=== PATIENT | female | born 1945 | race African-American/Black ===

== ENCOUNTER 2018-09-22 07:54 | Day surgery (SDC) | payer OTHER ==
[2018-09-22] MEDS ORDERED: ACETAMINOPHEN 325 MG TABLET (FP) PO ONE (12:30)
[2018-09-22] MEDS ORDERED: ACETAMINOPHEN 325 MG TABLET (FP) ONE (12:30)
[2018-09-22 12:35] VITALS: TEMP 97.5
[2018-09-22 13:17] VITALS: BP 133/77; PULSE 61
--- NOTE | 2018-09-25 09:32 | PATH ---
Surgical Pathology Report Patient Name: DIEGO DOWLING [facility]. Rec. #: [id number] /Age/Gender: 1945 (Age: 73) / F Account: [id number] Location: [facility]-ENDOSCOPY Taken: 09/22/2018 Received: 09/22/2018 Reported: 09/25/2018 Physicians: Bucky Kaplan M.D. Specimen(s) Received A: BX 2ND PORTION DUODENUM B: BX ANTRUM C: BX SCHATZKI'S RING D: BX GASTRIC FUNDUS POLYP E: BX MID ESOPHAGUS F: BX CECAL POLYP G: BX MID TRANSVERSE COLON POLYP H: POLYP SIGMOID Clinical History Dysphagia, adenoma surveillance Postoperative diagnosis: Atrophic gastritis, hiatal hernia, Schatzki's ring, diverticulosis, colon polyp Final Diagnosis A. DUODENUM, SECOND PORTION AND DUODENAL BULB, BIOPSY: DUODENAL MUCOSA WITHOUT SIGNIFICANT PATHOLOGIC FINDINGS. B. STOMACH, ANTRUM, BIOPSY: GASTRIC ANTRAL MUCOSA WITH MILD CHRONIC GASTRITIS. IMMUNOHISTOCHEMICAL STAIN FOR H. PYLORI IS NEGATIVE. C. SCHATZI'S RING, BIOPSY: SQUAMOCOLUMNAR MUCOSA WITH MILD CHRONIC INFLAMMATION AND CHANGES OF MILD REFLUX ESOPHAGITIS. NO INTESTINAL METAPLASIA OR DYSPLASIA IDENTIFIED. D. GASTRIC FUNDUS, POLYP, BIOPSY: FUNDIC GLAND POLYP. IMMUNOHISTOCHEMICAL STAIN FOR H. PYLORI IS NEGATIVE. E. MID ESOPHAGUS, BIOPSY: SQUAMOUS MUCOSA WITH MILD BASAL CELL HYPERPLASIA AND FOCAL VASCULAR CONGESTION. F. CECUM, POLYP, BIOPSY: TUBULAR ADENOMA. G. MID TRANSVERSE COLON, POLYP, BIOPSY: HYPERPLASTIC POLYP. H. SIGMOID COLON, POLYP, BIOPSY: POLYPOID COLONIC MUCOSA WITH SUPERFICIAL HYPERPLASTIC FEATURES. Electronically Signed Jennifer Bryson M.D. Gross Description A. Received in formalin, labeled "biopsy second portion of duodenum and duodenal bulb" are 3 [place], irregular portions of soft tissue ranging from 0.3-0.4 cm. in greatest dimension. The specimens are submitted in toto in one cassette. B. Received in formalin, labeled "biopsy antrum" are 4 [place], irregular portions of soft tissue ranging from 0.3-0.4 cm. in greatest dimension. The specimens are submitted in toto in one cassette. C. Received in formalin, labeled "biopsy Schatzki's ring" are 6 [place], irregular portions of soft tissue ranging from 0.2-0.5 cm. in greatest dimension. The specimens are submitted in toto in one cassette. D. Received in formalin, labeled "biopsy gastric fundus polyp" are 2 [place], irregular portions of soft tissue measuring 0.2 and 0.3 cm. in greatest dimension. The specimens are submitted in toto in one cassette. E. Received in formalin, labeled "biopsy mid esophagus" are 2 more[place], irregular portions of soft tissue averaging 0.2 cm. in greatest dimension. The specimens are submitted in toto in one cassette. F. Received in formalin, labeled "biopsy cecal polyp" is a moreland, irregular portion of soft tissue measuring 0.4 cm. in greatest dimension. The specimen is submitted in toto in one cassette. G. Received in formalin, labeled "biopsy mid transverse colon polyp" are 3 more[place], irregular portions of soft tissue ranging from 0.1-0.4 cm. in greatest dimension. The specimens are submitted in toto in one cassette. H. Received in formalin, labeled "biopsy sigmoid colon polyp" are 2 more[place], irregular portions of soft tissue measuring 0.2 and 0.3 cm. in greatest dimension. The specimens are submitted in toto in one cassette. 09/22/2018 saudi09/22/2018
== END 2018-09-22 13:31 | disposition home or self-care (01) ==
LOC: JASU-ENDO 07:54
PROVIDERS: ATTEND Internal Medicine Gastroenterology
PROC: 0DBL8ZX Excision of Transverse Colon, Via Natural or Artificial Opening Endoscopic, Diagnostic (ICD-10-PCS; 2018-09-22)
PROC: 0DBN8ZX Excision of Sigmoid Colon, Via Natural or Artificial Opening Endoscopic, Diagnostic (ICD-10-PCS; 2018-09-22)
PROC: 0DB48ZX Excision of Esophagogastric Junction, Via Natural or Artificial Opening Endoscopic, Diagnostic (ICD-10-PCS; 2018-09-22)
PROC: 0DB68ZX Excision of Stomach, Via Natural or Artificial Opening Endoscopic, Diagnostic (ICD-10-PCS; 2018-09-22)
PROC: 0DB38ZX Excision of Lower Esophagus, Via Natural or Artificial Opening Endoscopic, Diagnostic (ICD-10-PCS; 2018-09-22)
PROC: 0D748ZZ Dilation of Esophagogastric Junction, Via Natural or Artificial Opening Endoscopic (ICD-10-PCS; 2018-09-22)
PROC: 0DBH8ZX Excision of Cecum, Via Natural or Artificial Opening Endoscopic, Diagnostic (ICD-10-PCS; principal; 2018-09-22 10:45)
DX: Z12.11 Encounter for screening for malignant neoplasm of colon (principal); Z86.010 Personal history of colon polyps; D12.0 Benign neoplasm of cecum; D12.5 Benign neoplasm of sigmoid colon; D12.3 Benign neoplasm of transverse colon; K57.30 Diverticulosis of large intestine without perforation or abscess without bleeding; K64.8 Other hemorrhoids; K22.2 Esophageal obstruction; K44.9 Diaphragmatic hernia without obstruction or gangrene; K21.9 Gastro-esophageal reflux disease without esophagitis
CPT/HCPCS: 88305-TC; 88342-TC

== ENCOUNTER 2019-01-28 07:25 | Emergency (ER) | payer OTHER ==
[2019-01-28 07:38] VITALS: BMI 26.6
--- NOTE | 2019-01-28 07:38 | PDOC ---
History of Present Illness - General Stated Complaint: PAIN Time Seen by Provider: 01/28/19 07:38 History Source: Patient Exam Limitations: No Limitations - History of Present Illness Initial Comments: 01/28/19 07:59 73 year old woman with a history of diverticulosis, migraines, torticollis of the neck (managed by botox), HTN, hypothyroidism and HLD who presents with sudden onset pressure like generalized headache that is rated 8.5/10 that woke her up from sleep and prevented her from going back to sleep. The patient denies any changes in vision or hearing, slurring of speech or facial droop. She did not take any medication for her pain. She also notes that she has had some stabbing sensation in her L shoulder for several days and has chronic nausea. She admits to chronic ongoing intermittent chest pain. She admits to some seasonal allergies. She denies any fevers, shortness of breath, cough, cold , congestion, diarrhea, onstipation or abdominal pain. She has no other complaints at bedside. Sister at bedside lives with patient, denies any changes in mentation or slurring of speech. Past History - Past Medical History Allergies/Adverse Reactions: Allergies Allergy/AdvReac Type Severity Reaction Status Date / Time No Known Drug Allergies Allergy Verified 01/28/19 07:36 NON DRUG ALLERGENS Allergy Uncoded 01/28/19 07:36 Home Medications: Ambulatory Orders Levothyroxine [Synthroid -] 50 mcg PO DAILY 02/13/14 Amlodipine Besylate/Benazepril [Lotrel 10-20 mg Capsule] 1 cap PO DAILY Onabotulinumtoxina [Botox (Nf) -] 200 unit IM ASDIR 06/26/15 propRANOLol HCL [Inderal -] 10 mg PO BID 06/26/15 Magnesium Carb/Aluminum Hydrox [Gaviscon Es Tablet Chew] 1 each PO Q4H PRN 30 Days #30 tab.chew 09/22/18 Omeprazole 40 mg PO DAILY 01/28/19 Pramipexole Dihydrochloride [Mirapex -] 0.25 mg PO HS 01/28/19 Anemia: No Asthma: No Cancer: No Cardiac Disorders: No CVA: No COPD: No CHF: No Dementia: No Diabetes: Yes (BORDERLINE) GI Disorders: Yes (HIATAL HERNIA, H/O DIVERTICULITIS, COLON POLYPS,TORTICOLLIS, SCHATZKI RING) Disorders: No HTN: Yes Hypercholesterolemia: Yes (HYPERLIPIDEMIA) Liver Disease: No Seizures: No Thyroid Disease: Yes (HYPOTHYROIDISM) - Surgical History Abdominal Surgery: No Appendectomy: No Cardiac Surgery: No Cholecystectomy: No Lung Surgery: No Neurologic Surgery: No Orthopedic Surgery: No - Immunization History Immunization Up to Date: No - Suicide/Smoking/Psychosocial Hx Smoking History: Never smoked Have you smoked in the past 12 months: No If you are a former smoker, when did you quit?: 10 YRS AGO Hx Alcohol Use: Yes (RARE) Drug/Substance Use Hx: No Substance Use Type: None Hx Substance Use Treatment: No Review of Systems - Review of Systems Able to Perform ROS?: Yes Comments:: 01/28/19 08:19 GENERAL/CONSTITUTIONAL: No fever or chills. No weakness. HEAD, EYES, EARS, NOSE AND THROAT: No change in vision. No ear pain or discharge. No sore throat. CARDIOVASCULAR: No chest pain or shortness of breath RESPIRATORY: No cough, wheezing, or hemoptysis. GASTROINTESTINAL: No nausea, vomiting, diarrhea or constipation. GENITOURINARY: No dysuria, frequency, or change in urination. MUSCULOSKELETAL: No joint or muscle swelling or pain. No neck or back pain. SKIN: No rash NEUROLOGIC: + headache, No vertigo, loss of consciousness, or change in strength /sensation. ENDOCRINE: No increased thirst. No abnormal weight change HEMATOLOGIC/LYMPHATIC: No anemia, easy bleeding, or history of blood clots. ALLERGIC/IMMUNOLOGIC: No hives or skin allergy. Is the patient limited Cuban proficient: No *Physical Exam - Vital Signs Last Vital Signs Temp Pulse Resp BP Pulse Ox 98 F 80 18 194/109 H 98 01/28/19 07:32 01/28/19 07:32 01/28/19 07:32 01/28/19 07:32 01/28/19 07:32 - Physical Exam Comments: 01/28/19 08:16 GENERAL: Awake, alert, and fully oriented, in no acute distress HEAD: No signs of trauma, normocephalic, atraumatic EYES: PERRLA, EOMI, sclera anicteric, conjunctiva clear, no sinus pressure ENT: oropharynx clear without exudates. Moist mucosa NECK: Normal ROM, supple LUNGS: No distress, speaks full sentences, clear to auscultation bilaterally HEART: Regular rate and rhythm, normal S1 and S2, no murmurs, rubs or gallops, peripheral pulses normal and equal bilaterally. ABDOMEN: Soft, nontender, normoactive bowel sounds. No guarding, no rebound. No masses EXTREMITIES : Normal inspection, Normal range of motion, no edema. No clubbing or cyanosis. NEUROLOGICAL: Cranial nerves II through XII grossly intact. Normal speech, normal gait, no focal sensorimotor deficits SKIN: Warm, Dry, normal turgor, no rashes or lesions noted ED Treatment Course - LABORATORY CBC & Chemistry Diagram: 01/28/19 08:47 01/28/19 08:47 Medical Decision Making - Medical Decision Making 01/28/19 08:10 73 year old woman with a history of diverticulosis, migraines, torticollis of the neck (managed by botox), HTN, hypothyroidism and HLD who presents with sudden onset pressure like generalized headache that is rated 8.5/10 that woke her up from sleep and prevented her from going back to sleep. The patient denies any changes in vision or hearing, slurring of speech or facial droop. She did not take any medication for her pain. She also notes that she has had some stabbing sensation in her L shoulder for several days and has chronic nausea. She admits to chronic ongoing intermittent chest pain. She admits to some seasonal allergies and took two sinus medications this AM. She denies any fevers, shortness of breath, cough, cold, congestion, diarrhea, onstipation or abdominal pain. She has no other complaints at bedside. ED Course: consider migraine vs sinus headache vs tension headache vs SAH consider headahce 2/2 to htn however patient's max bp at home was 160s/100 but her average bp is ~ 130s/90s will dose pain medication to seek improvement of bp as it may be possible that the patient's pain is driving her bp she reports that she takes her bp med at night, lost dose last night. tylenol and reglan 01/28/19 09:46 labs wnl pending Head CT report 01/28/19 10:[address] negative discisssed LP with patient to rule out SAH as symptyoms ahve largely resolved with tylenol and reglan SAH is less likely, however patient still complains of stypical pain symptosm patient notes resolution of her headache aside from L sided pain persisting patient says that this is atypical of her normal migraines. considering this, will order CTA due to sudden onset of persisent headahce that awoke patient from sleep and is atypical from regular migraines 01/28/19 12:26 repeat vitals 170 systolic poatient reassessed states she did not take her am bp meds this am, her propranolol 10bid will dose home med. pending CTA and repeat trop 01/28/19 13:05 repeat trop negative pending CTA report 01/28/19 14:51 CXR: unremarkable, no acute pathology 01/28/19 14:59 CTA negative patient stable for discharge *DC/Admit/Observation/Transfer Diagnosis at time of Disposition: Headache - Discharge Dispostion Disposition: HOME Condition at time of disposition: Stable Decision to Admit order: No - Referrals Referrals: Efra Field MD [Primary Care Provider] - - Patient Instructions Printed Discharge Instructions: DI for Headache Additional Instructions: You were seen in the ED for complaints of headache. In the ED you were evaluated with labwork and imaging. Your results were largely unremarkable. There does not appear to be an acute need for immediate hospitalization. You are advised to follow up with your Primary Care Physician within 1-2 days. Please continue taking your blood pressure medications as indicated. Return to the ED immediately if you experience worsening headache, changes in vision, ringing in the ears, chest pain, shortness of breath, lightheadedness or loss of consciousness. - Post Discharge Activity
--- NOTE | 2019-01-28 08:26 | PDOC ---
Attending Attestation - Resident Resident Name: Magdalena Felton - ED Attending Attestation I have performed the following: I have examined & evaluated the patient, The case was reviewed & discussed with the resident, I agree w/resident's findings & plan, Exceptions are as noted - HPI HPI: 01/28/19 08:23 73yo F hx HTN, hypothyroidism, HL, diverticulosis, torticollis on botox, migraines presents to the ED with generalized headache and pressure. Headache began suddenly last night, woke her up from sleep and has been constant since Headache Does not feel like her usual migraines +chronic nausea No treats tried
[2019-01-28] MEDS ORDERED: METOCLOPRAMIDE HCL INJECTION 10 MG/2 ML VIAL IVPUSH ONE (08:40)
[2019-01-28] MEDS ORDERED: ACETAMINOPHEN 1000 MG/100 ML VIAL (NON FORMULARY) IVPB ONE (08:40)
[2019-01-28] MEDS ORDERED: ACETAMINOPHEN INJECTION 100 ML IVPB ONE (08:55)
[2019-01-28] MEDS ORDERED: METOCLOPRAMIDE HCL INJECTION 10 MG/2 ML VIAL ONE (08:55)
[2019-01-28 09:03] LABS: BASO % 1.1 % (0-2.0); EOS % 2.4 % (0-4.5); HEMATOCRIT 41.1 % (32.4-45.2); HEMOGLOBIN 13.8 GM/dL (10.7-15.3); LYMPH % 25.9 % (8-40); MCH 30.4 pg (25.7-33.7); MCHC 33.5 g/dl (32.0-36.0); MEAN CELL VOLUME 90.8 fl (80-96); MONO % 7.4 % (3.8-10.2); NEUT % 63.2 % (42.8-82.8); PLATELET COUNT 284 K/MM3 (134-434); RBC 4.53 M/mm3 (3.60-5.2); RDW 14.3 % (11.6-15.6); WHITE BLOOD COUNT 4.9 K/mm3 (4.0-10.0)
[2019-01-28 09:18] LABS: INR 1.03 (0.83-1.09); PROTHROMBIN TIME (PATIENT) 12.1 SEC (9.7-13.0)
[2019-01-28 09:21] LABS: ACTIVATED PTT 31.1 SECONDS (25.2-36.5)
[2019-01-28 09:31] LABS: ALBUMIN 3.7 g/dl (3.4-5.0); ALK PHOS 110 U/L (45-117); ANION GAP 5 MMOL/L (8-16); BILIRUBIN,TOTAL 0.4 mg/dL (0.2-1); BLOOD UREA NITROGEN 15 mg/dL (7-18); CALCIUM 9.2 mg/dL (8.5-10.1); CHLORIDE 109 mmol/L (98-107); CO2 27 mmol/L (21-32); CREATININE 0.9 mg/dL (0.55-1.3); GLUCOSE,RANDOM 115 mg/dL (74-106); SGOT/AST 10 U/L (15-37); SGPT/ALT 20 U/L (13-61); SODIUM 141 mmol/L (136-145)
--- NOTE | 2019-01-28 11:40 | PDOC ---
Documentation entered by Rudolph Seo SCRIBE, acting as scribe for Peyton Malik MD. Peyton Malik MD: This documentation has been prepared by the Rayray chow Daniel, SCRIBE, under my direction and personally reviewed by me in its entirety. I confirm that the documentation accurately reflects all work, treatment, procedures, and medical decision making performed by me. Attending Attestation - Resident Resident Name: Magdalena Felton - ED Attending Attestation I have performed the following: I have examined & evaluated the patient, The case was reviewed & discussed with the resident, I agree w/resident's findings & plan, Exceptions are as noted - HPI HPI: 01/28/19 10:29 The patient is a 73 year old female with a past medical history of diverticulosis, migraines, torticollis of the neck (managed by botox), HTN, and hypothyroidism here today for evaluation of headache. The patient reports that she was asleep last night when her headache woke her up. She describes it as a pressure that is most prominent on the left side of her head. She states she did not have a headache when she went to sleep last night. She reports that her headache is now almost completely gone. She states this feels a bit different than her migraines. Denies associated stiff neck, nausea, vomiting, dizziness, focal weakness/numbness. She notes associated flutters in her chest and intermittent left arm pain which she states she has had for more than a year on and off. No known triggers. She states Dr. Acevedo has referred her to a personal carer at [facility] for these sxs. Patient denies fever, chills. Denies chest pain, shortness of breath. Denies diarrhea, abdominal pain. Denies lower extremity edema. Allergies: NKDA Social history: Patient reports quitting tobacco use 10-15 years ago PCP: Dr. Efra Field - Physicial Exam PE: 01/28/19 11:12 GENERAL: Awake, alert, and fully oriented, in no acute distress HEAD: No signs of trauma EYES: PERRLA, EOMI, sclera anicteric, conjunctiva clear ENT: Auricles normal inspection, hearing grossly normal, nares patent, oropharynx clear without exudates. Moist mucosa NECK: Normal ROM, supple, no lymphadenopathy, JVD, or masses LUNGS: Breath sounds equal, clear to auscultation bilaterally. No wheezes, and no crackles HEART: Regular rate and rhythm, normal S1 and S2, no murmurs, rubs or gallops ABDOMEN: Soft, nontender, normoactive bowel sounds. No guarding, no rebound. No masses EXTREMITIES: Normal range of motion, no edema. No cords, erythema, or tenderness NEUROLOGICAL: Normal speech, cranial nerves intact, 5/5 strength in all 4 extremities, normal sensation to light touch in all 4 extremities, normal cerebellar exam, normal gait, normal tone SKIN: Warm, Dry, normal turgor, no rashes or lesions noted. - Medical Decision Making 01/28/19 11:13 73yo F with MMP presents to the ED with a headache. Vitals with elevated BP on arrival which came down to 155/92 w/o intervention. Remaining vitals wnl Exam wnl, with non focal neuro exam, supple neck and comfortable appearing pt With regards to headache, considering it woke her up from sleep and pt states it is more severe than her usual migraines, SAH is on our differential. CTH negative for acute pathology. Discussed our concern with the patient for SAH, and recommended a lumbar puncture for further evaluation. Discussed with risks and benefits of this procedure with the patient and her sister, including being able to r/o SAH. Pt declines the LP because she states her pond has basically resolved at this point and she does not want the procedure. As an alternative, pt was offered a CTA to look for aneurysm which she agrees to. She is aware that a CTA will not definitively r/o a SAH bleed With regards to her year of chest fluttering and arm pain, she has had sxs for a year and they would be very atypical for an ACS. EKG is unchanged compared to EKG from 2015. Plan to check 2 trops, CXR, reassess. 01/28/19 15:02 Trop x2 neg Pt asymptomatic in the ED, no further headache or CP CTA with no evidence of anuerysm Pt to f/u with PMD in 1-2 days and return if and new, recurring, or concerning symptoms I discussed the physical exam findings, ancillary test results and final diagnoses with the patient. I answered all of the patient's questions. The patient was satisfied with the care received and felt comfortable with the discharge plan and treatment plan. The patient will call their primary care physician within 24 hours to arrange follow-up and will return to the Emergency Department with any new, persistent or worsening symptoms. Heart Score/ECG Review - Risk Factors Risk Factors Heart Score: Yes Smoking History Based on the list above the patient has:: 1-2 risk factors #1 01/28/19 11:02 Twelve-lead EKG was performed and reviewed by me. Normal sinus rhythm, rate 64. Normal axis. No ST elevations. T wave inversions in leads V2 to V5. EKG is unchanged compared to EKG from 12/10/2014.
[2019-01-28 12:20] VITALS: TEMP 97.7
[2019-01-28] MEDS ORDERED: SODIUM CHLORIDE 500 ML IV SCH (12:30)
[2019-01-28 13:54] VITALS: PULSE 67
[2019-01-28 14:40] VITALS: BP 157/85
--- NOTE | 2019-01-29 09:58 | EKG ---
Test Reason : Blood Pressure : / mmHG Vent. 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
== END 2019-01-28 15:20 | disposition home or self-care (01) ==
LOC: JER 07:25
PROC: 3E033NZ Introduction of Analgesics, Hypnotics, Sedatives into Peripheral Vein, Percutaneous Approach (ICD-10-PCS; principal; 2019-01-28)
PROC: 3E033GC Introduction of Other Therapeutic Substance into Peripheral Vein, Percutaneous Approach (ICD-10-PCS; 2019-01-28)
DX: R51 Headache (principal); I10 Essential (primary) hypertension; E03.9 Hypothyroidism, unspecified; E78.5 Hyperlipidemia, unspecified
CPT/HCPCS: 36415; 70450-TC; 70496-TC; 71045-TC-FY; 80053; 84484; 85025; 85610; 85730; 93005; 93010; 96374; 96375; 99283-25; J0131; J7030

== ENCOUNTER 2020-08-01 05:00 | Day surgery (SDC) | payer OTHER ==
[2020-07-31 12:15] VITALS: BMI 30.4
[2020-08-01 10:26] VITALS: TEMP 97.6
[2020-08-01 11:04] VITALS: BP 129/71; PULSE 62
== END 2020-08-01 11:20 | disposition home or self-care (01) ==
LOC: JASU-ENDO 05:00
PROVIDERS: ATTEND Internal Medicine Gastroenterology
PROC: 0DBL8ZX Excision of Transverse Colon, Via Natural or Artificial Opening Endoscopic, Diagnostic (ICD-10-PCS; 2020-08-01)
PROC: 0DBN8ZX Excision of Sigmoid Colon, Via Natural or Artificial Opening Endoscopic, Diagnostic (ICD-10-PCS; 2020-08-01)
PROC: 0DBP8ZX Excision of Rectum, Via Natural or Artificial Opening Endoscopic, Diagnostic (ICD-10-PCS; 2020-08-01)
PROC: 0DBH8ZX Excision of Cecum, Via Natural or Artificial Opening Endoscopic, Diagnostic (ICD-10-PCS; 2020-08-01)
PROC: 0DBK8ZX Excision of Ascending Colon, Via Natural or Artificial Opening Endoscopic, Diagnostic (ICD-10-PCS; principal; 2020-08-01 09:30)
DX: Z12.11 Encounter for screening for malignant neoplasm of colon (principal); K62.1 Rectal polyp; D12.2 Benign neoplasm of ascending colon; D12.0 Benign neoplasm of cecum; D12.5 Benign neoplasm of sigmoid colon; D12.3 Benign neoplasm of transverse colon; K57.30 Diverticulosis of large intestine without perforation or abscess without bleeding; K64.8 Other hemorrhoids; I10 Essential (primary) hypertension; E11.9 Type 2 diabetes mellitus without complications
CPT/HCPCS: 88305-TC

== ENCOUNTER 2023-11-23 04:17 | Day surgery (SDC) | payer OTHER ==
[2023-11-15 15:33] VITALS: BMI 29.4
[2023-11-23 08:35] VITALS: TEMP 98.6
[2023-11-23 08:54] VITALS: RESP 18
[2023-11-23 08:55] VITALS: BP 105/63; PULSE 75
== END 2023-11-23 09:40 | disposition home or self-care (01) ==
LOC: JASU-ENDO 04:17
PROVIDERS: ATTEND Internal Medicine Gastroenterology
PROC: 0DBL8ZX Excision of Transverse Colon, Via Natural or Artificial Opening Endoscopic, Diagnostic (ICD-10-PCS; 2023-11-23)
PROC: 0DBP8ZX Excision of Rectum, Via Natural or Artificial Opening Endoscopic, Diagnostic (ICD-10-PCS; principal; 2023-11-23 08:00)
DX: Z12.11 Encounter for screening for malignant neoplasm of colon (principal); Z86.010 Personal history of colon polyps; D12.8 Benign neoplasm of rectum; D12.3 Benign neoplasm of transverse colon; K57.30 Diverticulosis of large intestine without perforation or abscess without bleeding; K64.8 Other hemorrhoids
CPT/HCPCS: 82962

== ENCOUNTER 2024-12-13 07:10 | Day surgery (SDC) | payer OTHER ==
[2024-12-10 13:14] VITALS: BMI 29.2
[2024-12-13] MEDS ORDERED: LIDOCAINE HCL/PF 1% SDV 5ML VIAL ONE (07:18)
[2024-12-13] MEDS ORDERED: TRIAMCINOLONE ACET 40MG/1ML VIAL ONE (07:18)
[2024-12-13] MEDS ORDERED: BUPIVACAINE HCL/PF 0.5% (5MG/ML) 10 ML VIAL ONE (07:18)
[2024-12-13 11:44] VITALS: BP 122/74; PULSE 73; RESP 16; TEMP 98.2
[2024-12-13] MEDS ORDERED: ACETAMINOPHEN 500 MG TABLET (FP) PO PRN (12:13)
== END 2024-12-13 12:00 | disposition home or self-care (01) ==
LOC: JASU-SURG 07:10
PROVIDERS: ATTEND Pain Medicine Pain Medicine
PROC: 3E0T3BZ Introduction of Anesthetic Agent into Peripheral Nerves and Plexi, Percutaneous Approach (ICD-10-PCS; principal; 2024-12-13 11:45)
DX: M47.816 Spondylosis without myelopathy or radiculopathy, lumbar region (principal)
CPT/HCPCS: 76000-TC-FY

== ENCOUNTER 2025-04-19 06:26 | Day surgery (SDC) | payer OTHER ==
[2025-04-17 12:41] VITALS: BMI 29.2
[2025-04-19] MEDS ORDERED: LIDOCAINE HCL/PF 1% SDV 5ML VIAL ONE (07:13)
[2025-04-19 07:37] VITALS: RESP 16
[2025-04-19] MEDS ORDERED: CEFAZOLIN SODIUM 2 GM in DEXTROSE 5%-WATER 100 ML IVPB ONE (08:00)
[2025-04-19] MEDS ORDERED: ONDANSETRON 4 MG/2 ML VIAL IVPUSH PRN (08:12)
[2025-04-19] MEDS ORDERED: LACTATED RINGERS SOLUTION 1,000 ML IV SCH (08:15)
[2025-04-19] MEDS: LIDOCAINE HCL 1% PRESERVATIVE FREE - 30ML VIAL IJ ONE (08:45)
[2025-04-19] MEDS: LIDOCAINE HCL/PF 2% SDV 5ML VIAL INF ONE (08:48)
[2025-04-19 09:43] VITALS: TEMP 97.4
[2025-04-19 10:23] VITALS: BP 118/70; PULSE 70
[2025-04-19] MEDS ORDERED: ACETAMINOPHEN 500 MG TABLET (FP) PO PRN (13:46)
== END 2025-04-19 10:30 | disposition home or self-care (01) ==
LOC: JASU-SURG 06:26
PROVIDERS: ATTEND Pain Medicine Pain Medicine
PROC: 00HU3MZ Insertion of Neurostimulator Lead into Spinal Canal, Percutaneous Approach (ICD-10-PCS; principal; 2025-04-19 08:00)
DX: G89.4 Chronic pain syndrome (principal); M54.16 Radiculopathy, lumbar region; E11.40 Type 2 diabetes mellitus with diabetic neuropathy, unspecified
CPT/HCPCS: 63650; C1897; 76000-TC-FY; 82962

== ENCOUNTER 2025-06-18 14:31 | Emergency (ER) | payer OTHER ==
[2025-06-18 14:36] VITALS: BMI 29.4
[2025-06-18 16:12] LABS: ABSOLUTE IMMATURE GRANULOCYTES 0.01 x10^3/uL (0.0-0.031); BASOPHILS # 0.04 x10^3/uL (0.01-0.08); EOSINOPHIL % 1.3 % (0.7-5.8); EOSINOPHILS # 0.07 x10^3/uL (0.04-0.36); MCHC 32.1 g/dl (32.2-35.5); MEAN CELL VOLUME 92.0 fl (79.4-94.8); MEAN PLT VOLUME 11.0 fl (9.4-12.3); MONOCYTE # 0.52 x10^3/uL (0.24-0.86); MONOCYTE % 9.4 % (4.7-12.5); RDW 14.4 % (12.4-16.6)
[2025-06-18 16:47] LABS: GLUCOSE,RANDOM 115.0 mg/dL (74-106); TOT PROT 7.2 g/dl (6.4-8.2)
[2025-06-18 16:48] LABS: CO2 23.0 mmol/L (21-32)
[2025-06-18 16:49] LABS: ALK PHOS 94.0 U/L (40-150)
[2025-06-18 16:52] LABS: CREATININE 0.99 mg/dL (0.55-1.3); SGOT/AST 30.0 U/L (5-34); SGPT/ALT 24.0 U/L (0-55)
[2025-06-18 17:30] LABS: HIV INTERPRETATION NEGATIVE (NEGATIVE)
[2025-06-18 18:10] VITALS: BP 152/95; PULSE 68; RESP 18; TEMP 97.8
== END 2025-06-18 19:49 | disposition home or self-care (01) ==
LOC: JER 14:31
DX: M79.89 Other specified soft tissue disorders (principal); R07.89 Other chest pain; M79.602 Pain in left arm; R14.0 Abdominal distension (gaseous)
CPT/HCPCS: 36415; 71046-TC-FY; 80053; 84484; 85025; 87389; 93005; 93010; 93970-TC; 99285-25